=== PATIENT | female | born 1980 | race Caucasian/White ===

== ENCOUNTER 2017-05-03 07:49 | Emergency (ER) ==
[2017-05-03 07:56] VITALS: BP 130/76; TEMP 98.9; BMI 37.2
--- NOTE | 2017-05-03 08:06 | ED.PDOC ---
General ED Provider: Dr. BECCA TIRADO JR Chief Complaint: Ankle Pain/Injury Stated Complaint: SLIPPED ON WET PORCH STEPS AND FELL WITH LEFT FOOT UNDER DENIES OTHER INJURY[ End ]1 hour 98.9 101 18 98% 130/76 8/10[ End ] Time Seen by Physician: 08:05 Mode of Arrival: Walk-In Information Source: Patient Exam Limitations: No limitations Nursing and Triage Documentation Reviewed and Agree: No Review of Systems - Review Of Systems Constitutional: Reports: No symptoms Eyes: Reports: No symptoms Ears, Nose, Mouth, Throat: Reports: No symptoms Respiratory: Reports: No symptoms Cardiac: Reports: No symptoms GI: Reports: No symptoms : Reports: No symptoms Musculoskeletal: Reports: Joint pain, Muscle pain, Other Skin: Reports: Lesions (note excoriated lesion each side affected left leg medial and lateral with lateral erythema edeam about 6cm) Neurological: Reports: No symptoms Endocrine: Reports: No symptoms All Other Systems: Other Past Medical History - Past Medical History Previously Healthy: Yes Endocrine: Reports: None Cardiovascular: Reports: None Respiratory: Reports: None Hematological: Reports: None Gastrointestinal: Reports: None Genitourinary: Reports: None Neuro/Psych: Reports: None Musculoskeletal: Reports: None Cancer: Reports: None Last Menstrual Period: 3 WEEKS - Surgical History General Surgical History: Reports: Tubal ligation (GB, ONE TUBE TIED ), Cholecystectomy - Family History Family History: Reports: Unknown - Social History Smoking Status: Current every day smoker Hx Substance Use: No Alcohol Screening: Occasionally - Immunizations Tetanus Shot up to Date: Yes Physical Exam - Physical Exam Appearance: Ill-appearing Pain Distress: Moderate Neck: Supple Respiratory: Airway patent Musculoskeletal: Normal strength, ROM intact, Edema (ankle), Calf tenderness ( left contusion) Skin: Warm, Dry, Normal color Neurological: Sensation intact, Motor intact, Reflexes intact, Cranial nerves intact, Alert, Oriented Psychiatric: Affect appropriate, Mood appropriate Critical Care Note - Critical Care Note Total Time (mins): 0 Course - Course Orders, Labs, Meds: Orders Category Date Time Status ANKLE, LEFT MIN 3 VIEWS Stat RADS 05/03/17 08:12 Completed FOOT, LEFT 3 VIEWS Stat RADS 05/03/17 08:12 Completed TIBIA/FIBULA, LEFT 2 VIEWS Stat RADS 05/03/17 08:12 Completed Vital Signs: Temp Pulse Resp BP Pulse Ox 05/03/17 07:51 98.9 F 101 H 18 130/76 98 Departure - Departure Time of Disposition: 08:54 Disposition: HOME SELF-CARE Discharge Problem: Contusion of left lower leg, initial encounter, Insect bite (nonvenomous), left lower leg, initial encounter, Insect bite (nonvenomous), left lower leg, sequela Insect bite of left lower leg with infection Qualifiers: Encounter type: initial encounter Qualifier Code: (S80.862A) Insect bite ( nonvenomous), left lower leg, initial encounter Instructions: Contusion in Adults (ED), Cellulitis (ED), Crush Injury (ED), Swollen Ankle Joint (ED) Condition: Good Pt referred to PMD for follow-up: Yes Additional Instructions: limit weight for three days crutches antibiotic for cellulitis recheck one week PMD return if fever over 101.0 Prescriptions: Hydrocodone Bit/Acetaminophen [[place] 5-325] 1 - 2 tab PO Q6HR PRN #12 tablet PRN Reason: pain Cephalexin [Keflex] 500 mg PO QID #30 capsule Allergies/Adverse Reactions: Allergies No Known Allergies Allergy (Unverified 05/03/17 07:51) Home Medications: Ambulatory Orders Cephalexin [Keflex] 500 mg PO QID #30 capsule 05/03/17 Hydrocodone Bit/Acetaminophen [[place] 5-325] 1 - 2 tab PO Q6HR PRN #12 tablet 04/12 Disposition Discussed With: Patient
--- NOTE | 2017-05-03 08:47 | DI ---
EXAM: LEFT ANKLE 3 VIEWS HISTORY: Fall, tenderness and swelling FINDINGS: Bone and joint structures appear normal. There is no fracture, joint dislocation or gilberto int effusion. Bone density unremarkable. IMPRESSION: Bone and joint structures are within normal limits.
--- NOTE | 2017-05-03 08:47 | DI ---
EXAM: Radiographs, left tibia and fibula HISTORY: Initial presentation for left leg trauma. COMPARISON: None available. TECHNIQUE: Frontal and lateral views. FINDINGS: Bone mineralization is normal. There is no fracture or dislocation. The joint spaces ar e maintained. Anterior and lateral subcutaneous edema noted. IMPRESSION: No fracture or dislocation.
--- NOTE | 2017-05-03 08:49 | DI ---
EXAM: Three views of the left foot. History: Left foot pain and swelling, trauma. Findings: No acute fracture or dislocation. No abnormal calcifications or radiopaque foreign jonathan s. Joint spaces are preserved. 3 mm linear radiodensity seen projecting along the superficial soft tissues of the distal third digit. Impression: No acute osseous abnormality.
[2017-05-03] MEDS: PHENERGAN 25 MG/ML VIAL IM STA (09:19)
[2017-05-03] MEDS: DEMEROL 50 MG/ML SYRINGE IM STA (09:19)
== END 2017-05-03 10:06 | disposition home or self-care (01) ==
LOC: ED 07:49
DX: S80.862A Insect bite (nonvenomous), left lower leg, initial encounter (principal); S80.12XA Contusion of left lower leg, initial encounter; W01.0XXA Fall on same level from slipping, tripping and stumbling without subsequent striking against object, initial encounter; W57.XXXA Bitten or stung by nonvenomous insect and other nonvenomous arthropods, initial encounter; F17.210 Nicotine dependence, cigarettes, uncomplicated
CPT/HCPCS: 96372; 99283

== ENCOUNTER 2018-02-05 20:15 | Emergency (ER) ==
[2018-02-05 20:28] VITALS: BP 147/87; TEMP 98.9; BMI 39.8
--- NOTE | 2018-02-05 20:34 | ED.PDOC ---
General ED Provider: Dr. SOPHIA CHAN Chief Complaint: Extremity Swelling/Pain Stated Complaint: Came for the swelling redness left leg, no inuries. Time Seen by Physician: 20:32 Mode of Arrival: Walk-In Information Source: Patient Nursing and Triage Documentation Reviewed and Agree: Yes Reviewed sepsis parameters & appropriate labs ordered?: No System Inflammatory Response Syndrome: Not Applicable Sepsis Protocol: For patient's 13 years and over: Temp is 96.8 and below OR 101 and greater Pulse >90 BPM Resp >20/minute Acutely Altered Mental Status Are patient's symptoms suggestive of a new infection, such as: -Pneumonia -Skin, Soft Tissue -Endocarditis -UTI -Bone, Joint Infection -Implantable Device -Acute Abdominal Infection -Wound Infection -Meningitis -Blood Stream Catheter Infection -Unknown Skin Complaint Exam - Skin/Soft Tissue Complaint/Exam Symptoms Are: Still present Timing: Constant Initial Severity: Moderate Current Severity: Moderate Character: Reports: Redness, Swelling, Raised, Painful Aggravating: Reports: Touch Alleviating: Reports: None Associated Signs and Symptoms: Reports: Tenderness, Red streaks. Denies: Fever , Chills, Itching, Drainage, Bruising, Joint swelling Related Surgical History: Reports: None Recent Exposure to Others w/Similar Symptoms: No Skin Findings: Present: Erythema, Induration, Fluctuant mass Differential Diagnoses: Abscess, Cellulitis Review of Systems - Review Of Systems Constitutional: Reports: No symptoms Eyes: Reports: No symptoms Ears, Nose, Mouth, Throat: Reports: No symptoms Respiratory: Reports: No symptoms Cardiac: Reports: No symptoms GI: Reports: No symptoms : Reports: No symptoms Musculoskeletal: Reports: No symptoms Skin: Reports: No symptoms Neurological: Reports: No symptoms Endocrine: Reports: No symptoms Hematologic/Lymphatic: Reports: No symptoms All Other Systems: Reviewed and Negative Past Medical History - Past Medical History Previously Healthy: Yes Endocrine: Reports: None Cardiovascular: Reports: None Respiratory: Reports: None Hematological: Reports: None Gastrointestinal: Reports: None Genitourinary: Reports: None Neuro/Psych: Reports: None Musculoskeletal: Reports: None Cancer: Reports: None Last Menstrual Period: 2 weeks ago - Surgical History General Surgical History: Reports: Tubal ligation (GB, ONE TUBE TIED ), Cholecystectomy - Family History Family History: Reports: Unknown - Social History Smoking Status: Current some day smoker Hx Substance Use: No Alcohol Screening: None - Immunizations Tetanus Shot up to Date: Yes Physical Exam - Physical Exam Appearance: Well-appearing, No pain distress, Well-nourished Eyes: BUZZ, EOMI, Conjunctiva clear ENT: Ears normal, Nose normal, Oropharynx normal Respiratory: Airway patent, Breath sounds clear, Breath sounds equal, Respirations nonlabored Cardiovascular: RRR, Pulses normal, No rub, No murmur GI/: Soft, Nontender, No masses, Bowel sounds normal, No Organomegaly Musculoskeletal: Normal strength, ROM intact, No edema, No calf tenderness Skin: Warm (left upper caff, 3 cm palpable mass, red tender. no open wound), Dry , Normal color Neurological: Sensation intact, Motor intact, Reflexes intact, Cranial nerves intact, Alert, Oriented Psychiatric: Affect appropriate, Mood appropriate Critical Care Note - Critical Care Note Total Time (mins): 30 Course - Course Orders, Labs, Meds: Orders Category Date Time Status BLOOD CULTURE Stat LAB 02/05/18 20:31 Ordered CBC W/ AUTO DIFF Stat LAB 02/05/18 20:31 Ordered COMPREHENSIVE METABOLIC PANEL Stat LAB 02/05/18 20:31 Ordered Ceftriaxone Sodium [Rocephin] MEDS 02/05/18 20:36 Discontinued 1 gm IM ONCE STA Ketorolac Tromethamine [Toradol] MEDS 02/05/18 20:36 Discontinued 60 mg IM ONCE STA Lidocaine HCl/Pf [Lidocaine HCl 1% Sdv] MEDS 02/05/18 20:36 Discontinued 2.1 ml IM ONCE STA Sulfamethoxazole/Trimethoprim [Bactrim Ds 800/160 mg] MEDS 02/05/18 20:36 Discontinued 1 tab PO ONCE STA Medications Discontinued Medications Generic Name Dose Route Start Last Admin Trade Name Freq PRN Reason Stop Dose Admin Ceftriaxone Sodium 1 gm 02/05/18 20:36 Rocephin IM 02/05/18 20:37 ONCE STA Ketorolac Tromethamine 60 mg 02/05/18 20:36 Toradol IM 02/05/18 20:37 ONCE STA Lidocaine HCl 2.1 ml 02/05/18 20:36 Lidocaine Hcl 1% Sdv IM 02/05/18 20:37 ONCE STA Trimethoprim/Sulfamethoxazole 1 tab 02/05/18 20:36 Bactrim Ds 800/160 Mg PO 02/05/18 20:37 ONCE STA Vital Signs: Temp Pulse Resp BP Pulse Ox 02/05/18 20:17 98.9 F 107 H 16 147/87 H 98 Departure - Departure Time of Disposition: 20:37 Disposition: HOME SELF-CARE Discharge Problem: Abscess Instructions: Abscess (ED) Condition: Stable Pt referred to PMD for follow-up: Yes IPMP verified?: No Additional Instructions: skin hygiene keep leg elevated. f/u in [facility] 3 days Prescriptions: Sulfamethoxazole/Trimethoprim [Bactrim Ds 800/160 mg] 1 tab PO Q12HR #20 tablet Hydrocodone/Acetaminophen [[place] 5-325 Tablet] 1 tab PO TID PRN #10 tablet PRN Reason: PAIN Allergies/Adverse Reactions: Allergies No Known Allergies Allergy (Verified 02/05/18 20:26) Home Medications: Ambulatory Orders Hydrocodone/Acetaminophen [[place] 5-325 Tablet] 1 tab PO TID PRN #10 tablet 02/05 Sulfamethoxazole/Trimethoprim [Bactrim Ds 800/160 mg] 1 tab PO Q12HR #20 tablet 02/05/18 Disposition Discussed With: Patient
[2018-02-05] MEDS ORDERED: LIDOCAINE HCL 1% SDV IM STA (20:36)
[2018-02-05] MEDS ORDERED: ROCEPHIN IM STA (20:36)
[2018-02-05] MEDS ORDERED: TORADOL IM STA (20:36)
[2018-02-05] MEDS ORDERED: BACTRIM DS 800/160 MG PO STA (20:36)
[2018-02-05] MEDS ORDERED: K-DUR PO STA (21:25)
[2018-02-05] MEDS: K-DUR PO STA ×2 (21:32)
== END 2018-02-05 21:45 | disposition home or self-care (01) ==
LOC: ED 20:15
DX: L02.416 Cutaneous abscess of left lower limb (principal); F17.210 Nicotine dependence, cigarettes, uncomplicated
CPT/HCPCS: 36415; 80053; 85025; 87040; 96372; 99283

== ENCOUNTER 2018-02-10 17:52 | Inpatient (IN) ==
--- NOTE | 2018-02-10 18:42 | ED.PDOC ---
General ED Provider: Dr. ISHAAN CARRERA-ER Chief Complaint: Non-specific Complaint Stated Complaint: the redness and drainage of my leg is worse--lefty few days ago and notes worsening redness and drainage Time Seen by Physician: 18:40 Mode of Arrival: Walk-In Information Source: Patient Exam Limitations: No limitations Nursing and Triage Documentation Reviewed and Agree: Yes Reviewed sepsis parameters & appropriate labs ordered?: Yes System Inflammatory Response Syndrome: Not Applicable Sepsis Protocol: For patient's 13 years and over: Temp is 96.8 and below OR 101 and greater Pulse >90 BPM Resp >20/minute Acutely Altered Mental Status Are patient's symptoms suggestive of a new infection, such as: -Pneumonia -Skin, Soft Tissue -Endocarditis -UTI -Bone, Joint Infection -Implantable Device -Acute Abdominal Infection -Wound Infection -Meningitis -Blood Stream Catheter Infection -Unknown Skin Complaint Exam - Skin/Soft Tissue Complaint/Exam Onset/Duration: several dya Symptoms Are: Still present Timing: Constant Initial Severity: Mild Current Severity: Moderate Location: left calf Character: Reports: Redness, Swelling, Raised, Painful Associated Signs and Symptoms: Reports: Drainage, Tenderness, Red streaks. Denies: Fever, Chills, Itching, Bruising, Joint swelling Related History: Reports: Similar episode Related Surgical History: Reports: None Recent Exposure to Others w/Similar Symptoms: No Skin Findings: Present: Erythema, Induration Joint Tenderness Present: No Differential Diagnoses: Cellulitis, MRSA Review of Systems - Review Of Systems Constitutional: Reports: No symptoms Eyes: Reports: No symptoms Ears, Nose, Mouth, Throat: Reports: No symptoms Respiratory: Reports: No symptoms Cardiac: Reports: No symptoms GI: Reports: No symptoms : Reports: No symptoms Musculoskeletal: Reports: No symptoms Skin: Reports: No symptoms Neurological: Reports: No symptoms Endocrine: Reports: No symptoms Hematologic/Lymphatic: Reports: No symptoms All Other Systems: Reviewed and Negative Past Medical History - Past Medical History Previously Healthy: Yes Endocrine: Reports: None Cardiovascular: Reports: None Respiratory: Reports: None Hematological: Reports: None Gastrointestinal: Reports: None Genitourinary: Reports: None Neuro/Psych: Reports: None Musculoskeletal: Reports: None Cancer: Reports: None Last Menstrual Period: 3 weeks - Surgical History General Surgical History: Reports: Tubal ligation (GB, ONE TUBE TIED ), Cholecystectomy - Family History Family History: Reports: Unknown - Social History Smoking Status: Current every day smoker, Light tobacco smoker Hx Substance Use: No Alcohol Screening: None Physical Exam - Physical Exam Appearance: Well-appearing, No pain distress, Well-nourished Pain Distress: Mild Eyes: BUZZ ENT: Ears normal, Nose normal, Oropharynx normal Neck: Supple Respiratory: Airway patent, Breath sounds clear, Breath sounds equal, Respirations nonlabored Cardiovascular: RRR, Pulses normal, No rub, No murmur GI/: Soft, Nontender, No masses, Bowel sounds normal, No Organomegaly Musculoskeletal: Normal strength, ROM intact, No edema, No calf tenderness Skin: Warm, Dry, Normal color Neurological: Sensation intact, Motor intact, Reflexes intact, Cranial nerves intact, Alert, Oriented Psychiatric: Affect appropriate, Mood appropriate, Anxious Physician Notification - Case Discussed Physician Notified: dr donnelly Time of Notification: 18:42 Critical Care Note - Critical Care Note Total Time (mins): 0 Course - Course Orders, Labs, Meds: Orders Category Date Time Status IV [ED IV/MEDIPORT/POWERPORT] .ONCE EMERGENCY 02/10/18 18:36 Active BLOOD CULTURE (ED ONLY) Stat LAB 02/10/18 Ordered CBC W/ AUTO DIFF Stat LAB 02/10/18 18:36 Ordered COMPREHENSIVE METABOLIC PANEL Stat LAB 02/10/18 18:36 Ordered SERUM Stat LAB 02/10/18 18:36 Ordered WOUND CULTURE Stat LAB 02/10/18 18:36 Uncollected 0.9 % Sodium Chloride [Saline Flush] MEDS 02/10/18 18:36 Ordered 1 syr IVF PRN PRN Medications Generic Name Dose Route Start Last Admin Trade Name Freq PRN Reason Stop Dose Admin Sodium Chloride 1 syr 02/10/18 18:36 Saline Flush IVF PRN PRN To flush IV Vital Signs: Temp Pulse Resp BP Pulse Ox 02/10/18 17:53 98.2 F 110 H 20 154/82 H 97 Departure - Departure Time of Disposition: 18:42 Disposition: ADMITTED INPATIENT Discharge Problem: Cellulitis and abscess of left leg Instructions: Cellulitis (ED) Condition: Good Pt referred to PMD for follow-up: Yes IPMP verified?: No Allergies/Adverse Reactions: Allergies No Known Allergies Allergy (Verified 02/10/18 17:57) Home Medications: Ambulatory Orders Hydrocodone/Acetaminophen [[place] 5-325 Tablet] 1 tab PO TID PRN #10 tablet 02/05 Potassium Chloride [K-Dur] 20 meq PO BID #14 tablet.er 02/05/18 Sulfamethoxazole/Trimethoprim [Bactrim Ds 800/160 mg] 1 tab PO Q12HR #20 tablet 02/05/18 Disposition Discussed With: Patient
[2018-02-10] MEDS ORDERED: K-DUR PO STA (19:34)
[2018-02-10] MEDS ORDERED: CLEOCIN ONE (20:01)
[2018-02-10] MEDS: SODIUM CHLORIDE 1,000 ML IV SCH (20:05)
[2018-02-10] MEDS: CLEOCIN 600 MG in SODIUM CHLORIDE 50 ML IV SCH ×2 (20:06→20:20)
[2018-02-10 21:53] VITALS: BMI 41.5
[2018-02-10] MEDS: NORCO 5-325 PO PRN (22:05)
[2018-02-11] MEDS ORDERED: CLEOCIN ONE (00:02)
[2018-02-11] MEDS: CLEOCIN 600 MG in SODIUM CHLORIDE 50 ML IV SCH ×2 (04:10→13:20)
[2018-02-11] MEDS: LOVENOX SUBCUT SCH (09:18)
[2018-02-11] MEDS ORDERED: ATIVAN PO STA (13:29)
[2018-02-11] MEDS: SODIUM CHLORIDE 1,000 ML IV SCH (13:39)
[2018-02-11] MEDS ORDERED: VANCOMYCIN 1 GM in SODIUM CHLORIDE 250 ML IV SCH (16:00)
[2018-02-11] MEDS: ROCEPHIN 1 GM in SODIUM CHLORIDE 50 ML IV SCH (16:45)
[2018-02-11] MEDS: VANCOMYCIN 1,500 MG in SODIUM CHLORIDE 500 ML IV SCH (20:05)
[2018-02-12] MEDS: LOVENOX SUBCUT SCH (08:11)
[2018-02-12] MEDS: ROCEPHIN 1 GM in SODIUM CHLORIDE 50 ML IV SCH (08:11)
[2018-02-12] MEDS: VANCOMYCIN 1,500 MG in SODIUM CHLORIDE 500 ML IV SCH ×2 (09:14→20:23)
[2018-02-12] MEDS: SODIUM CHLORIDE 1,000 ML IV SCH ×2 (15:45→20:23)
[2018-02-12] MEDS: NORCO 5-325 PO PRN ×2 (15:55→21:54)
[2018-02-12] MEDS: BUSPAR PO SCH (21:54)
[2018-02-13] MEDS: BUSPAR PO SCH ×2 (08:55→20:31)
[2018-02-13] MEDS: ROCEPHIN 1 GM in SODIUM CHLORIDE 50 ML IV SCH (08:55)
[2018-02-13] MEDS: LOVENOX SUBCUT SCH (08:55)
[2018-02-13] MEDS: VANCOMYCIN 1,500 MG in SODIUM CHLORIDE 500 ML IV SCH ×2 (11:22→20:35)
[2018-02-13] MEDS: NORCO 5-325 PO PRN ×2 (14:40→20:32)
[2018-02-13] MEDS ORDERED: ATIVAN IVP STA (16:38)
[2018-02-14] MEDS: SODIUM CHLORIDE 1,000 ML IV SCH ×2 (06:57→08:28)
[2018-02-14] MEDS: BUSPAR PO SCH ×2 (08:28→20:33)
[2018-02-14] MEDS: ROCEPHIN 1 GM in SODIUM CHLORIDE 50 ML IV SCH (08:28)
[2018-02-14] MEDS: LOVENOX SUBCUT SCH (08:29)
[2018-02-14] MEDS: VANCOMYCIN 1,500 MG in SODIUM CHLORIDE 500 ML IV SCH (09:26)
[2018-02-14] MEDS: VANCOMYCIN 1.25 GM in SODIUM CHLORIDE 250 ML IV SCH ×2 (09:29→20:33)
[2018-02-14] MEDS: NORCO 5-325 PO PRN ×2 (09:36→20:33)
--- NOTE | 2018-02-14 13:31 | HP ---
DATE OF SERVICE: 02/10/18 CHIEF COMPLAINT/HISTORY OF PRESENT ILLNESS: This is a 37 year old female who was recently in the emergency room on 02/05/18 for left upper thigh abscess and was started on the Bactrim. The patient was taking the medication and did not help. It started opening and started draining puss. The patient came and saw Dr. Spicer in the emergency room and being admitted to the hospital for the abscess with draining puss and needing IV antibiotics. REVIEW OF SYSTEMS: CONSTITUTIONAL: Fever, Chills. HEENT: Normal. ENDOCRINE: No weight gain; no weight loss. CVS: No chest pain. No PND, no orthopnea. No shortness of breath. No PND, no orthopnea. RESPIRATORY: No cough, no congestion. No hemoptysis. GI: No nausea, no vomiting. No abdominal pain. No melena. : No hematuria. No polyuria. MUSCULOSKELETAL: No joint swelling. PSYCHIATRIC: Not anxious. No depression. No suicidal thoughts. No homicidal thoughts. SKIN: Intact, no open lesions. Left thigh can calf upper area abscess which is draining puss, pain. PAST MEDICAL HISTORY: Hepatitis C positive History of CVA History of MRSA infections Nicotine use PAST SURGICAL HISTORY: Tubal ligation PERSONAL HISTORY: Nicotine use FAMILY HISTORY: Heart problems Diabetes MEDICATIONS: Bactrim Hydrocodone Potassium ALLERGIES: No known allergies PHYSICAL EXAMINATION: V/S: Blood pressure 92/56, respiratory rate 16, heart rate 75, temperature 97.8 with saturation 97%. HEENT: Atraumatic, normocephalic. No scleral icterus. Pallor positive. Mucosa dry. NECK: Supple. No JVD, no bruit. No lymphadenopathy. No thyromegaly. HEART: S1, S2 normal. No murmur. No cyanosis or clubbing. No ascites. LUNGS: Clear to auscultation. No rales or rhonchi. ABDOMEN: Soft, nontender. Bowel sounds are active. No CVA tenderness. No rigidity or guarding. EXTREMITIES: No pedal edema. No cyanosis or clubbing. Left upper calf area [id number] wound, red swollen area draining puss on pressure. Yellow to red bloody puss. MUSCULOSKELETAL: Normal joints, no swelling. NEUROLOGIC: The patient is awake, alert and oriented. SKIN: Intact; no open lesions. LYMPHATIC: No lymph nodes palpable. LABS: WBC 4.54, hgb 12.1, hct 36.0, plt count 231, sodium 138, potassium 2.7, chloride 103, bicarb 24, BUN 7, creatinine 0.79, glucose 97. AST 45. ASSESSMENT: 1. Left upper calf abscess draining puss 2. Severe hypokalemia 3. Hepatitis C PLAN: 1. Admit the patient to the hospital 2. Replaced Potassium with IV potassium 3. IV and PO Potassium 4. Hydrocodone PRN 5. Lovenox for the DVT prophylaxis 6. Clindamycin 600mg Q 8 hours 7. Out of bed to chair activity as tolerated TIME SPENT: MORE THAN 75 minutes MTDD
--- NOTE | 2018-02-14 13:36 | PN ---
DATE OF SERVICE: 02/11/18 SUBJECTIVE: Abscess is still draining the puss, some smell is present. No fever or chills. REVIEW OF SYSTEMS: CONSTITUTIONAL: No fever, no chills. HEENT: Normal. ENDOCRINE: No weight gain, no weight loss. CVS: No angina symptoms. No CHF symptoms. No palpitations. No atypical chest pain for CAD. No shortness of breath. No PND, no orthopnea. RESPIRATORY: No cough, no hemoptysis. GI: No nausea, no vomiting. No abdominal pain. : No hematuria. No polyuria. MUSCULOSKELETAL: No joint swelling. PSYCHIATRIC: Not anxious. No depression. No suicidal thoughts. No homicidal thoughts. SKIN: Intact. No rash. PHYSICAL EXAMINATION: V/S: Blood pressure 110/68, respiratory rate 20, heart rate 87, temperature 98.6 and saturation 97%. HEENT: Normocephalic, atraumatic. Mucosa dry. NECK: Supple. No JVD, no carotid bruit. No lymphadenopathy. LUNGS: Clear to auscultation. No rales or rhonchi. HEART: S1, S2 normal. No S3. No murmur, gallop or regurgitation. ABDOMEN: Soft, nontender. Bowel sounds active. No rigidity. No rebound or guarding. No CVA tenderness. EXTREMITIES: No cyanosis, clubbing or pedal edema. Left upper calf area [id number] wound, red swollen area draining puss on pressure. Yellow to red bloody puss. MUSCULOSKELETAL: No joint swelling. NEUROLOGIC: Awake, alert, oriented times three. No focal deficit. LYMPHATIC: No lymph nodes palpable. SKIN: Intact. LABS: Sodium 141, potassium 3.5, chloride 109, bicarb 24, BUN 7, creatinine 0.67, glucose 88, WBC 3.03, hgb 11.7, hct 34.8, plt count 262 ASSESSMENT: 1. Left upper leg abscess draining puss 2. Hepatitic C 3. History of MRSA infections in the past PLAN: 1. Stop Clindamycin 2. Start the Vancomycin and Rocephin 3. Keep the legs elevated 4. IV fluids 5. Hydrocodone for the pain TIME SPENT: More than 35 minutes MTDD
--- NOTE | 2018-02-14 14:42 | PN ---
DATE OF SERVICE: 02/12/18 SUBJECTIVE: The patient was admitted with left leg abscess, still wound is draining puss; yellow to bloody. The patient is up and about walking. No fever. Redness and swelling is somewhat better. Still left calf and calf is hurting. REVIEW OF SYSTEMS: CONSTITUTIONAL: No fever, no chills. HEENT: Normal. ENDOCRINE: No weight gain, no weight loss. CVS: No angina symptoms. No CHF symptoms. No palpitations. No atypical chest pain for CAD. No shortness of breath. No PND, no orthopnea. RESPIRATORY: No cough, no hemoptysis. GI: No nausea, no vomiting. No abdominal pain. : No hematuria. No polyuria. MUSCULOSKELETAL: No joint swelling. PSYCHIATRIC: Not anxious. No depression. No suicidal thoughts. No homicidal thoughts. SKIN: Intact. No rash. PHYSICAL EXAMINATION: V/S: Blood pressure 105/65, respiratory rate 16, heart rate 75, temperature 98.0 and saturation 98. HEENT: Normocephalic, atraumatic. Mucosa dry. Pallor positive. No icterus. NECK: Supple. No JVD, no carotid bruit. No lymphadenopathy. LUNGS: Clear to auscultation. No rales or rhonchi. HEART: S1, S2 normal. No S3. No murmur, gallop or regurgitation. ABDOMEN: Soft, nontender. Bowel sounds active. No rigidity. No rebound or guarding. No CVA tenderness. EXTREMITIES: No cyanosis, clubbing or pedal edema. Left leg upper part redness and swelling 4c5cm with center opening draining blood and the puss. MUSCULOSKELETAL: No joint swelling. NEUROLOGIC: Awake, alert, oriented times three. No focal deficit. LYMPHATIC: No lymph nodes palpable. SKIN: Intact. LABS: Sodium 138, potassium 3.5, chloride 111, bicarb 21, BUN 7, creatinine 0.65, glucose 101, WBC 3.06, hgb 10.9, hct 32.7, plt count 179. ASSESSMENT: 1. Left leg abscess draining puss 2. History of Hepatitis C 3. Cholecystectomy 4. History of multiple MRSA infections PLAN: 1. Continue the Lovenox, Rocephin and Vancomycin 2. IV fluids 3. Out of bed to chair activity as tolerated 4. No anticoagulation as patient is ambulatory and walking. TIME SPENT: More than 35 minutes MTDD
[2018-02-15] MEDS: SODIUM CHLORIDE 1,000 ML IV SCH (04:56)
[2018-02-15 05:26] VITALS: BP 113/66; TEMP 97.9
[2018-02-15] MEDS: BUSPAR PO SCH (08:41)
[2018-02-15] MEDS: ROCEPHIN 1 GM in SODIUM CHLORIDE 50 ML IV SCH (08:41)
[2018-02-15] MEDS: LOVENOX SUBCUT SCH (08:41)
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
--- NOTE | 2018-02-15 10:52 | PN ---
DATE OF SERVICE: 02/13/18 SUBJECTIVE: Left leg wound is getting better but still puss and blood is draining from the calf area. No fever or chills. The patient says that she did talk to the mental health and they have given her the appointment on Wednesday in the office. Otherwise no new complaints. The patient's is in the room and they are not fighting, says that she has been quiet today. REVIEW OF SYSTEMS: CONSTITUTIONAL: No fever, no chills. HEENT: Normal. ENDOCRINE: No weight gain, no weight loss. CVS: No angina symptoms. No CHF symptoms. No palpitations. No atypical chest pain for CAD. No shortness of breath. No PND, no orthopnea. RESPIRATORY: No cough, no hemoptysis. GI: No nausea, no vomiting. No abdominal pain. : No hematuria. No polyuria. MUSCULOSKELETAL: No joint swelling. PSYCHIATRIC: Not anxious. No depression. No suicidal thoughts. No homicidal thoughts. SKIN: Intact. No rash. PHYSICAL EXAMINATION: V/S: Blood pressure 115/77, respiratory rate 20, heart rate 60, temperature 97.7 and saturation 98%. HEENT: Normocephalic, atraumatic. Mucosa dry. NECK: Supple. No JVD, no carotid bruit. No lymphadenopathy. LUNGS: Clear to auscultation. No rales or rhonchi. HEART: S1, S2 normal. No S3. No murmur, gallop or regurgitation. ABDOMEN: Soft, nontender. Bowel sounds active. No rigidity. No rebound or guarding. No CVA tenderness. EXTREMITIES: No cyanosis, clubbing or pedal edema. Left calf area, swelling and tenderness is present, draining the puss and the blood mixed. MUSCULOSKELETAL: No joint swelling. NEUROLOGIC: Awake, alert, oriented times three. No focal deficit. LYMPHATIC: No lymph nodes palpable. SKIN: Intact. LABS: WBC 3.06, hgb 10.9, hct 32.7, plt count 179, sodium 138, potassium 3.5, chloride 111, bicarb 21, BUN 7, creatinine 0.65, glucose 101 ASSESSMENT: 1. Left calf abscess, failure as an outpatient treatment 2. Leukocytosis which is better 3. Severe hypokalemia improved 4. Anxiety 5. Depression 6. Manic episode, mental health been contacted. PLAN: 1. Continue the Rocephin, Vancomycin and IV fluids 2. Buspar 10mg twice a day TIME SPENT: More than 35 minutes MTDD
--- NOTE | 2018-02-15 14:47 | PN ---
DATE OF SERVICE: 02/14/18 SUBJECTIVE: The patient was admitted with left calf abscess been getting IV antibiotics and feeling better. Mood has been good and the patient did have one panic attack yesterday for which we had to give her Ativan 1mg IV push. REVIEW OF SYSTEMS: CONSTITUTIONAL: No fever, no chills. HEENT: Normal. ENDOCRINE: No weight gain, no weight loss. CVS: No angina symptoms. No CHF symptoms. No palpitations. No atypical chest pain for CAD. No shortness of breath. No PND, no orthopnea. RESPIRATORY: No cough, no hemoptysis. GI: No nausea, no vomiting. No abdominal pain. : No hematuria. No polyuria. MUSCULOSKELETAL: No joint swelling. PSYCHIATRIC: Not anxious. No depression. No suicidal thoughts. No homicidal thoughts. SKIN: Intact. No rash. PHYSICAL EXAMINATION: V/S: Blood pressure 92/59, respiratory rate 18, heart rate 63, temperature 98.5 with saturation 99%. HEENT: Normocephalic, atraumatic. Mucosa dry. Pallor positive. NECK: Supple. No JVD, no carotid bruit. No lymphadenopathy. LUNGS: Clear to auscultation. No rales or rhonchi. HEART: S1, S2 normal. No S3. No murmur, gallop or regurgitation. ABDOMEN: Soft, nontender. Bowel sounds active. No rigidity. No rebound or guarding. No CVA tenderness. EXTREMITIES: No cyanosis, clubbing or pedal edema. Left leg upper calf area drainage is present; clear to pussy. No swelling and no redness. MUSCULOSKELETAL: No joint swelling. NEUROLOGIC: Awake, alert, oriented times three. No focal deficit. LYMPHATIC: No lymph nodes palpable. SKIN: Intact. LABS: Urine drug screen positive for the methamphetamine. Sodium 138, potassium 3.5, chloride 111, bicarb 21, BUN 7, creatinine 0.65, glucose 101, WBC 3.06, hgb 15.9. hct 32.7, plt count 179. ASSESSMENT: 1. Left calf abscess, draining puss 2. Hypokalemia which is better 3. Panic attacks 4. Behavioral changes with depression issues PLAN: 1. Continue the Vancomycin 2. Rocephin 3. Out of bed to chair 4. Lorazepam as needed. TIME SPENT: More than 35 minutes MTDD
--- NOTE | 2018-03-11 13:27 | DS ---
DATE OF SERVICE: 02/15/18 FINAL DIAGNOSIS: 1. LEFT CALF ABSCESS, SPONTANEOUSLY DRAINING PUS 2. ANEMIA, DILUTIONAL 3. SUBSTANCE USE DISORDER 4. HISTORY OF ANXIETY AND DEPRESSION DISCHARGE INSTRUCTIONS: 1. Followup appointment with Dr. Tobin in his office on 02/22/18 at 11 a.m. 2. Keep open areas to your left leg clean and dry. Cleanse with mild soap and water. Cover the area. 3. Keep your appointment with [facility] on 02/15/18 at 1 p.m. as scheduled MEDICATIONS AT DISCHARGE: Hydrocodone/Acetaminophen one tab p.o. t.i.d. p.r.n. Potassium Chloride (K-Dur) 20 mEq p.o. b.i.d. NEW PRESCRIPTIONS: Bactrim DS 800/160 mg one tab p.o. q.12hr DIET INSTRUCTIONS: Healthy Heart ACTIVITY: Get plenty of rest at home. Gradually increase your activity level according to your toleration. DISEASE SPECIFIC EDUCATION: Cellulitis, antibiotic use and diarrhea have been discussed. HOSPITAL COURSE: This is a 37-year-old female who was initially seen and treated in the emergency room for left lower extremity cellulitis, which did not get better, came back to the emergency room. White count 4.54, hemoglobin normal. Potassium 2.7. The patient was having nausea and vomiting. She was admitted to the hospital. Meth was positive on urine drug screen. She was started on Rocephin and Vancomycin. With the given treatment, gradually the swelling, redness and drainage was getting better. The patient started walking again. Nausea and vomiting got better. Potassium was replaced and was 3.5 and 3.5. She did not have any complications during the hospital stay. TIME SPENT: MORE THAN 65 MINUTES MTDD
== END 2018-02-15 10:31 | disposition home or self-care (01) | DRG 603 ==
LOC: ED 17:52 → MEDSURG B 18:50
PROVIDERS: ADMIT Emergency Medicine; ATTEND Emergency Medicine
DX: L02.416 Cutaneous abscess of left lower limb (principal); L03.116 Cellulitis of left lower limb; M79.662 Pain in left lower leg; F41.9 Anxiety disorder, unspecified; F41.0 Panic disorder [episodic paroxysmal anxiety]; F32.9 Major depressive disorder, single episode, unspecified; E87.6 Hypokalemia; B19.20 Unspecified viral hepatitis C without hepatic coma; D64.89 Other specified anemias; D72.829 Elevated white blood cell count, unspecified; F17.290 Nicotine dependence, other tobacco product, uncomplicated; F15.10 Other stimulant abuse, uncomplicated; R46.89 Other symptoms and signs involving appearance and behavior; Z86.14 Personal history of Methicillin resistant Staphylococcus aureus infection; Z86.73 Personal history of transient ischemic attack (TIA), and cerebral infarction without residual deficits
CPT/HCPCS: 36415; 80053; 80202; 80306; 84703; 85025; 87040; 87070; 87081; 93005; 93010; 99223; 99233; 99239; 99284